=== PATIENT | female | born 1980 | race Caucasian/White ===

== ENCOUNTER 2020-01-16 00:15 | Emergency (ER) | payer SELFPAY ==
[~2020-01-16] VITALS: Ht 175.3 cm; Wt 88.0 kg
[2020-01-16 00:28] VITALS: BP 125/84
--- NOTE | 2020-01-16 01:29 | NUR ---
PT TO ULTRASOUND
[2020-01-16 02:09] LABS: BASOPHILS % (AUTO) 1 % (0-1); EOSINOPHILS % (AUTO) 1 % (1-7); LYMPHOCYTES % (AUTO) 29 % (22-44); MEAN CORPUSCULAR HEMOGLOBIN 28.7 pg (27.0-34.8); MEAN CORPUSCULAR HGB CONC 33.7 g/dL (32.4-35.8); MEAN PLATELET VOLUME 5.9 fL (7.4-10.4); MONOCYTES % (AUTO) 9 % (2-9); NEUTROPHILS % (AUTO) 61 % (42-75); PLATELET COUNT 382 x10^3/uL (130-400); RED BLOOD COUNT 4.54 x10^6/uL (3.82-5.3); RED CELL DISTRIBUTION WIDTH 14.3 % (9.6-15.2)
[2020-01-16 02:11] LABS: MD NO
[2020-01-16 02:17] LABS: ALANINE AMINOTRANSFERASE 99 U/L (12-78); ALBUMIN 3.8 g/dL (3.4-5.0); ANION GAP 5 mmol/L (5-15); CALCIUM 8.5 mg/dL (8.5-10.1); CHLORIDE 107 mmol/L (98-107); CREATININE 0.81 mg/dL (0.55-1.02)
[2020-01-16 02:22] LABS: ALKALINE PHOSPHATASE 72 U/L (45-117); BILIRUBIN,TOTAL 0.6 mg/dL (0.2-1.0); TOTAL PROTEIN 7.4 g/dL (6.4-8.2)
--- NOTE | 2020-01-16 02:32 | NUR ---
PER ER MD CHIRINOS, NO NEED FOR URINE SAMPLE
--- NOTE | 2020-01-16 02:40 | NUR ---
PT LEFT BEFORE RECIEVING PAPERWORK
[2020-01-16] MEDS ORDERED: ACETAMINOPHEN 500 MG TABLET PO ONE (03:00)
== END 2020-01-16 02:41 | disposition home or self-care (01) ==
LOC: ED 02:05
DX: O20.0 Threatened abortion (principal); R10.9 Unspecified abdominal pain; R11.0 Nausea; Z3A.08 8 weeks gestation of pregnancy; F17.200 Nicotine dependence, unspecified, uncomplicated
CPT/HCPCS: 36415; 76801; 80053; 84702; 85025; 99284